=== PATIENT | male | born 1955 | race Caucasian/White ===

== ENCOUNTER 2024-10-06 07:28 | Outpatient (OUT) | payer MEDICARE, SELFPAY ==
--- NOTE | 2024-10-06 | MR_ITS ---
[address] [address] Patient Name: KIRTI GUZMAN MRN: [id number] date: 1955 Sex: M Assigned Patient Location: MRI Current Patient Location: MRI Accession/Order Number: [id number] Exam Date: 10/06/2024 11:29 Report Date: 10/06/2024 11:33 At the request of: DESTINEE RADHA DO Procedure: MR lumbar spine wo con EXAMINATION: MRI LUMBAR SPINE WITHOUT IV CONTRAST CLINICAL HISTORY: Low back pain radiating to right lower extremity M54.50 COMPARISON: None TECHNIQUE: Multiecho imaging was performed in the sagittal and axial planes without contrast administration. FINDINGS: Vertebral body heights appear maintained. No bone marrow edema is seen. Modic endplate degenerative changes L5-S1. Spinal cord terminates in normal position without MR cord signal. No paraspinal mass. Visualized retroperitoneum demonstrates no acute process. Partially visualized cyst right kidney. At L1-L2: No posterior disc pathology. No neural canal or foraminal stenosis. At L2-L3: No posterior disc pathology. No neural canal or foraminal stenosis. At L3-L4: Mild broad-based disc bulge with facet joint degenerative changes. No significant canal stenosis. Mild right-sided neural foraminal stenosis. At L4-L5: Mild broad-based disc bulge is present with facet joint degenerative changes. No significant canal stenosis. Mild bilateral neural foraminal stenosis. At L5-S1: No significant disc material is present possibly postsurgical in nature. Residual disc is seen posteriorly causing no significant canal stenosis. Mild facet degenerative changes. Mild left-sided neural foraminal stenosis. MR/MR lumbar spine wo con IMPRESSION: Multilevel degenerative changes as described above causing no severe canal or neural foraminal stenosis. Impression dictated by: Bola Urias Jr., D.O. 10/06/2024 11:33 AM Dictation Location: [place] [address] Electronically authenticated by: [id number] Y Date: 10/06/2024 11:33
--- OUTSIDE RECORDS SUMMARY | 2024-10-06 07:32 | XMS_ITS | Clinical Summary ---
Author Organization [facility] Address [address] [place] [address] Care Team Providers Care Station Cook Name Role Phone Unavailable Primary Care Provider Unavailabl e Social History Tobacco Use Types Packs/Day Years Used Date Smoking Tobacco: Never Assessed Sex and Gender Information Value Date Recorded Sex Assigned at Not on file Legal Sex Male 8:27 PM EDT Gender Identity Not on file Sexual Orientation Not on file Plan of Treatment Not on file
--- OUTSIDE RECORDS SUMMARY | 2024-10-06 07:32 | XMS_ITS | Clinical Summary ---
Author Organization [facility] Address [address], [address] [place] [address] Care Team Providers Care Vamp Creaser Name Role Phone Asael Glasgow DO Primary Care Provider [phone] Allergies No known active allergies Medications Multiple Vitamins-Minera ls (THERAPEUTIC MULTIVITAMIN-NM NERALS) tablet Take 1 tablet by mouth daily Active atorvastatin (LIPITOR) 10 MG tablet Take 1 tablet by mouth daily 08/23/2020 Active amLODIPine (NORVASC) 5 MG tablet Take 2 tablets by mouth daily 30 tablet 03/20/2021 Active losartan (COZAAR) 25 MG tablet TAKE 1 TABLET BY MOUTH EVERY DAY 12/24/2021 Active Active Problems Problem Noted Date Diagnosed Date Prostate cancer 06/07/2023 Elevated PSA 12/30/2017 Encounters Date Type Department Care Team Description 09/07/2024 10:00 AM EDT Office Visit [facility] Part of [address] [place] [id number] Beth Carlton, HEAD SHIPPER - ABSORBER OPERATOR Prostate cancer (HCC) (Primary Dx) 08/31/2024 Results Follow-Up [facility] Part of [address] [place] [address] Beth Carlton APRN - TATYANA 08/31/2024 Orders Only [facility] Part of [address] [place] [address] Adriana Aguirre LPN Prostate cancer (HCC) from Last 3 Months Family History Relation Name Status Comments Mother Alive Social History Tobacco Use Types Packs/Day Years Used Date Smoking Tobacco: Never Passive Smoke Exposure: Never Smokeless Tobacco: Never Tobacco Cessation:Counseling Given: Not Answered Alcohol Use Standard Drinks/Week Comments Yes 0 (1 standard drink = 0.6 oz pur e alcohol) social Sex and Gender Information Value Date Recorded Sex Assigned at Male 05/31/2024 4:21 PM EDT Legal Sex Male 11:34 AM EDT Gender Identity Not on file Sexual Orientation Not on file Last Filed Vital Signs Vital Sign Reading Time Taken Comments Blood Pressure 138/80 09/07/2024 9:54 AM EDT Pulse 69 06/06/2024 1:13 PM EDT Temperature 36.7 C (98 F) 09/07/2024 9:54 AM EDT Respiratory Rate 18 09/24/2022 9:55 AM EDT Oxygen Saturation 97% 09/24/2022 9:55 AM EDT Inhaled Oxygen Concentration - - Weight 68.5 kg (151 lb) 09/07/2024 9:54 AM EDT Height 175.3 cm (5' 9 ) 09/07/2024 9:54 AM EDT Body Mass Index 22.3 09/07/2024 9:54 AM EDT Plan of Treatment Upcoming Encounters Date Type Department Care Team (Late st Contact Info) Description 12/12/2024 8:15 AM EDT Office Visit [facility] Part of [address] [place] [address] Beth Carlton, HEAD SHIPPER - ABSORBER OPERATOR [address] [place] [address] [address] [place] [id number] 3M psa Health Maintenance Due Date Last Done Comments Lipids 1967 Depression Screen 1969 Hepatitis C screen 1975 DTaP/Tdap/Td vaccine (1 - Tdap) 1976 Colonoscopy 2002 Colorectal Cancer Screen 2002 FIT/FOBT: Average risk 2002 Fecal-DNA (Cologuard): Average risk 2002 Sigmoidoscopy/CT colonography 2002 Pneumococcal 50+ years Vaccine (1 of 1 - PCV) 2007 Shingles vaccine (1 of 2) 2007 Annual Wellness Visit (Medicare) 02/01/2023 COVID-19 Vaccine (3 - season) 2023 06/21/2020, 05/24/2020 Flu vaccine (#1) 10/06/2024 01/03/2021, 01/02/2020 Prostate Specific Antigen (PSA) Screening or Monitoring 08/31/2025 08/31/2024, 05/26/2024, 09/01/2023, Additional history exists Respiratory Syncytial Virus (RSV) or age 60 yrs+ (1 - 1-dose 75+ series) 2032 Hepatitis A vaccine Aged Out No longe r eligible based on patient's age to complete this topic Hepatitis B vaccine Aged Out No longe r eligible based on patient's age to complete this topic Hib vaccine Aged Out No longer eligi ble based on patient's age to complete this topic Meningococcal (ACWY) vaccine Aged Out No longer eligible based on patient's age to complete this topic Meningococcal B vaccine Aged Out No l onger eligible based on patient's age to complete this topic Polio vaccine Aged Out No longer elig ible based on patient's age to complete this topic Procedures Procedure Name Priority Date/Time Associated Diagnosis Comments PSA, DIAGNOSTIC Routine 08/31/2024 Prostate cancer (HCC) from Last 3 Months Results * PSA, Diagnostic (08/31/2024) PSA 0.1 ng/mL BLOOD SPECIMEN / Unknown 08/31/2024 us Beth Carlton HEAD SHIPPER - ABSORBER OPERATOR CHEMISTRY ORDERABLE S Edited Result - Final from Last 3 Months Insurance MEDICARE [employer] MEDICARE SUPP Care Teams Vamp Creaser Relationship Specialty Start Date End Date Asael Glasgow DO [address] [place] [address] PCP - General Internal Medicine 04/01/21
== END 2024-10-06 07:29 | disposition home or self-care (01) ==
LOC: MRI 07:31
PROVIDERS: PCP Internal Medicine; Visit Provider Internal Medicine
DX: M54.50 Low back pain, unspecified (principal); M79.604 Pain in right leg; M51.369 Other intervertebral disc degeneration, lumbar region without mention of lumbar back pain or lower extremity pain
CPT/HCPCS: 72148

== ENCOUNTER 2024-10-11 08:56 | Outpatient (RCR) | payer MEDICARE, SELFPAY | END 2024-10-31 10:50 | disposition home or self-care (01) | LOC: PT 08:56 | PROVIDERS: PCP Internal Medicine; Visit Provider Internal Medicine | DX: M54.59 Other low back pain (principal) | CPT/HCPCS: 97110; 97112; 97162 ==